=== PATIENT | female | born 1965 | race Caucasian/White ===

== ENCOUNTER → 2019-04-29 | Outpatient (CLI) | payer BC | END | disposition home or self-care (01) | LOC: RADPV 13:50 | PROVIDERS: ATTEND Hospitalist | DX: I12.9 Hypertensive chronic kidney disease with stage 1 through stage 4 chronic kidney disease, or unspecified chronic kidney disease (principal); N18.9 Chronic kidney disease, unspecified | CPT/HCPCS: 76770 ==

== ENCOUNTER 2019-06-25 08:09 | Day surgery (SDC) | payer BC ==
[~2019-06-25] VITALS: Ht 154.9 cm; Wt 86.4 kg
[~2019-06-25 08:09] MED LIST: SODIUM CHLORIDE 0.9% 1,000 ML IV ONE
[2019-06-25] MEDS ORDERED: REGADENOSON 0.4 MG/5 ML PF SYRINGE IVP ONE (08:10)
[2019-06-25 08:50] LABS: BASOPHILS % (AUTO) 0.7 % (0.0-2.0); EOSINOPHILS % (AUTO) 4.9 % (1.0-6.0); HEMATOCRIT 35.9 % (36-46); LYMPHOCYTES # (AUTO) 1.6 K/uL (1.0-4.8); LYMPHOCYTES % (AUTO) 24.1 % (22.0-44.0); MEAN CORPUSCULAR HEMOGLOBIN 29.1 pg (26.0-34.0); MEAN CORPUSCULAR HGB CONC 33.3 G/dL (31.0-37.0); MEAN CORPUSCULAR VOLUME 87 fL (80-100); MONOCYTES # (AUTO) 0.4 K/uL (0.1-1.0); MONOCYTES % (AUTO) 5.8 % (2.0-9.0); NEUTROPHILS # (AUTO) 4.3 K/uL (1.8-7.7); NEUTROPHILS % (AUTO) 64.5 % (40.0-70.0); PLATELET COUNT (AUTO) 262 K/uL (150-450); RED BLOOD CELL COUNT(AUTO) 4.12 MIL/uL (4.00-5.20); RED CELL DISTRIBUTION WIDTH 14.1 % (11.5-14.5)
[2019-06-25 09:00] LABS: CALCIUM, TOTAL 9.6 mg/dL (8.8-10.5); CREATININE 1.96 mg/dL (0.60-1.30); POTASSIUM 4.3 mmol/L (3.5-5.1)
[2019-06-25 09:04] LABS: PROTHROMBIN TIME 10.2 SEC (9.4-11.6)
[2019-06-25] MEDS ORDERED: GELATIN SPONGE,ABSORBABLE 12-7 MM TP ONE ×3 (10:21→14:51)
[2019-06-25] MEDS ORDERED: LISI-662 PO (10:33)
[2019-06-25] MEDS ORDERED: CHL25 PO (10:33)
[2019-06-25] MEDS ORDERED: CALC25 PO (10:33)
[2019-06-25] MEDS ORDERED: AMLO10TA7 PO (10:33)
[2019-06-25] MEDS ORDERED: LIDOCAINE/PF 1% 5 ML VIAL ONE ×2 (11:10→13:48)
[2019-06-25] MEDS ORDERED: SODIUM BICARBONATE 50 MEQ/50 ML VIAL ONE (11:11)
[2019-06-25 11:15] VITALS: BP 126/85
[2019-06-25] MEDS ORDERED: LIDOCAINE/PF 1% 5 ML VIAL INJ ONE ×2 (11:15)
[2019-06-25] MEDS ORDERED: SODIUM BICARBONATE 50 MEQ/50 ML VIAL SQ ONE (11:15)
[2019-06-25 12:00] VITALS: BP 150/92
[2019-06-25 12:30] VITALS: BP 140/83
== END 2019-06-25 16:35 | disposition home or self-care (01) ==
LOC: SURGERY 08:09 → EDSTATUS 10:00 → SURGERY 16:35
PROVIDERS: ATTEND Hospitalist
DX: I12.9 Hypertensive chronic kidney disease with stage 1 through stage 4 chronic kidney disease, or unspecified chronic kidney disease (principal); N18.3 Chronic kidney disease, stage 3 (moderate); Z79.899 Other long term (current) drug therapy; Z97.3 Presence of spectacles and contact lenses; Z98.890 Other specified postprocedural states
CPT/HCPCS: 36415; 50200; 77012; 80048; 85025; 85610; 85730; 88300; 93005; J2001; J2785; J3490; J7030